=== PATIENT | female | born 2000 | race Caucasian/White ===

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

== ENCOUNTER 2020-01-30 19:21 | Outpatient (CLI) | payer MEDICAID ==
[2020-01-30 19:53] VITALS: BP 103/55
[2020-01-30] MEDS ORDERED: LACTATED RINGERS 500 ML IV ONE (20:00)
[2020-01-30 21:28] LABS: Basophils % (Auto) 0.4 % (0.0-1.8); Eosinophils # (Auto) 0.1 K/mm3 (0.0-0.4); Eosinophils % (Auto) 1.4 % (0.0-4.3); Hematocrit 33.6 % (30.3-42.9); Hemoglobin 11.4 gm/dl (10.1-14.3); Lymphocytes # (Auto) 2.5 K/mm3 (1.2-5.4); Lymphocytes % (Auto) 36.1 % (13.4-35.0); Mean Corpuscular HGB Conc 34 % (30-34); Mean Corpuscular Volume 100 fl (79-97); Monocytes # (Auto) 0.7 K/mm3 (0.0-0.8); Monocytes % (Auto) 9.4 % (0.0-7.3); Platelet Count 261 K/mm3 (140-440); Red Blood Count 3.36 M/mm3 (3.65-5.03); Red Cell Distribution Width 13.4 % (13.2-15.2)
[2020-01-30 21:41] LABS: Bacteria,Urine 1+ /HPF (Negative); Bilirubin,Urine NEG (Negative); Blood,Urine NEG (Negative); Color,Urine Yellow (Yellow); Mucus,Urine FEW /HPF; Protein,Urine <15 mg/dL mg/dL (Negative); Urobilinogen,Urine < 2.0 mg/dL (<2.0)
--- NOTE | 2020-01-30 22:30 | Ultrasound Report ---
ULTRASOUND OBSTETRIC INDICATION / CLINICAL INFORMATION: VAGINAL BLEED, RULE OUT ABRUPTION, SANDRA. Clinical Gestational Age (GA): 32 weeks 1 day TECHNIQUE: Transabdominal. COMPARISON: Obstetric ultrasound from 12/13/2019 FINDINGS: There is a single intrauterine . Heart Rate: 130 beats per minute. Position: cephalic. Placenta: Anterior and left lateral and free of the os. Amniotic Fluid Volume: normal Amniotic Fluid Index (SANDRA) in cm (if calculated): 12.1. Maternal Adnexa: No significant abnormality. IMPRESSION: 1. Single, living intrauterine with heart rate 130 bpm. SANDRA 12.1 cm. 2. No significant sonographic abnormality. Signer Name: Errol Delacruz MD Signed: 01/30/2020 10:25 PM Workstation Name: [id number]
== END 2020-01-30 22:25 | disposition home or self-care (01) ==
LOC: TRG 19:21
PROVIDERS: ATTEND Obstetrics & Gynecology
DX: O26.853 Spotting complicating pregnancy, third trimester (principal); O26.893 Other specified pregnancy related conditions, third trimester; R25.2 Cramp and spasm; Z3A.32 32 weeks gestation of pregnancy
CPT/HCPCS: 36415; 59025; 76815; 81001; 85025; 86850; 86900; 86901; 96360; J7120

== ENCOUNTER 2020-03-27 16:14 | Inpatient (IN) | payer MEDICAID ==
[2020-03-27 18:20] LABS: Hematocrit 32.7 % (30.3-42.9); Hemoglobin 10.8 gm/dl (10.1-14.3); Mean Corpuscular HGB Conc 33 % (30-34); Mean Corpuscular Volume 96 fl (79-97); Platelet Count 207 K/mm3 (140-440); Red Blood Count 3.41 M/mm3 (3.65-5.03); Red Cell Distribution Width 14.1 % (13.2-15.2)
[2020-03-27] MEDS ORDERED: AMPICILLIN/NS 2 GM/100 ML 2 GM/100 ML BAG IV ONE ×2 (18:41→19:27)
[2020-03-27] MEDS ORDERED: LACTATED RINGERS 1,000 ML ONE (18:41)
[2020-03-27] MEDS ORDERED: ePHEDrine SULFATE 50 MG/1 ML INJ IV PRN ×2 (18:53→19:19)
[2020-03-27] MEDS ORDERED: TERBUTALINE 1 MG/1 ML INJ SUB-Q PRN ×2 (18:53→19:19)
[2020-03-27] MEDS ORDERED: ONDANSETRON 4 MG/2 ML INJ IV PRN (18:53)
[2020-03-27] MEDS ORDERED: TERBUTALINE 1 MG/1 ML INJ IVP PRN ×2 (18:53→19:19)
[2020-03-27] MEDS ORDERED: NalbUPHINE 10 MG/1 ML INJ IV PRN (18:53)
[2020-03-27] MEDS ORDERED: BUTORPHANOL 2 MG/1 ML INJ IV PRN (18:53)
[2020-03-27] MEDS ORDERED: MINERAL OIL 30 ML ORAL LIQD PO PRN ×2 (18:53→19:19)
[2020-03-27] MEDS ORDERED: LIDOCAINE (2%) 20 MG/1 ML VIAL 20 ML MDV INFILTRATI ONE (18:53)
[2020-03-27] MEDS ORDERED: fentaNYL 100 MCG/2 ML INJ IV PRN (18:53)
[2020-03-27] MEDS ORDERED: LACTATED RINGERS 1,000 ML IV SCH (19:00)
[2020-03-27] MEDS ORDERED: OXYTOCIN DRIP 30 UNITS/500 ML BAG IV SCH ×3 (19:00→20:00)
[2020-03-27] MEDS ORDERED: AMPICILLIN 2 GM in SODIUM CHLORIDE 0.9% 50 ML IV ONE (19:17)
[2020-03-27] MEDS ORDERED: OXYTOCIN 20 UNIT/1000ML DRIP 20 UNITS/1,000 ML BAG IV SCH (20:00)
[2020-03-27] MEDS: BUTORPHANOL 2 MG/1 ML INJ IV PRN (22:09)
[2020-03-27] MEDS: AMPICILLIN/NS 1 GM/50 ML 1 GM/50 ML BAG IV SCH (22:27)
[2020-03-28] MEDS: BUTORPHANOL 2 MG/1 ML INJ IV PRN (00:46)
[2020-03-28] MEDS ORDERED: LACTATED RINGERS 1,000 ML IV ONE (00:48)
[2020-03-28] MEDS: AMPICILLIN/NS 1 GM/50 ML 1 GM/50 ML BAG IV SCH ×3 (02:53→11:31)
[2020-03-28] MEDS ORDERED: fentaNYL-BUPIV 2 MCG/ML-0.125% 200 MCG/100 ML BAG EPIDURAL ONE (03:22)
[2020-03-28] MEDS ORDERED: DEXMEDETOMIDINE 200 MCG/2 ML VIAL IV ONE (03:22)
[2020-03-28] MEDS ORDERED: ePHEDrine SULFATE 50 MG/1 ML INJ IV PRN (03:25)
[2020-03-28] MEDS ORDERED: NALOXONE 2 MG/2 ML INJ IV PRN (03:25)
--- NOTE | 2020-03-28 03:43 | Anesthesia Consultation ---
Anesthesia Consult and Med Hx Date of service: 03/28/20 - Airway Anesthetic Teeth Evaluation: Good ROM Head & Neck: Adequate Mental/Hyoid Distance: Adequate Mallampati Class: Class II Intubation Access Assessment: Probably Good - Pulmonary Exam CTA: Yes - Cardiac Exam Cardiac Exam: RRR - Pre-Operative Health Status ASA Pre-Surgery Classification: ASA2 Proposed Anesthetic Plan: Epidural - Pulmonary Hx Asthma: No - Cardiovascular System Hx Hypertension: No - Central Nervous System Hx Seizures: No Hx Psychiatric Problems: No - Endocrine Hx Renal Disease: No Hx Hypothyroidism: No Hx Hyperthyroidism: No - Hematic Hx Anemia: No Hx Sickle Cell Disease: No - Other Systems Hx Alcohol Use: No
--- NOTE | 2020-03-28 03:44 | Progress Note ---
Labor Epidural - Labor Epidural Start Time: 03:36 Stop Time: 03:45 Performed by:: ERNESTINE CANSECO Procedure: Patient is requesting epidural for labor pain. H&P, and labs reviewed. Procedure explained, questions answered, consent obtained. Patient in sitting position with blood pressure cuff and pulse ox on and working. Timeout performed immediately before start of procedure. Sterile betadine prep/drape. 3 mL 1% lidocaine skin wheal at L[3]-L[4]. 18-gauge Touhy epidural needle advanced to [id number] with saline at [7] cm. Epidural dexmedetomidine [30] mcg administered. Epidural catheter advanced to [12] cm, negative aspiration for blood and csf, negative test dose 3 ml 1.5% lidocaine with epinephrine. Sterile steri-strips and tegaderm applied, followed by tape reinforcement. Patient tolerated procedure well.
[2020-03-28] MEDS ORDERED: fentaNYL-BUPIV 2 MCG/ML-0.125% 200 MCG/100 ML BAG EPIDURAL SCH (04:00)
--- NOTE | 2020-03-28 07:37 | History and Physical Report ---
History of Present Illness Date of examination: 03/28/20 Date of admission: 03/27/20 Chief complaint: Rupture of membranes History of present illness: Pt is a 19 yo at 40w3d EGA who presents reporting leaking fluid since 1600 on 03/27. She is comfortable with an epidural and has been receiving Pitocin overnight. She has received care with [facility]. Her has been complicated by bilateral pyelectasis, marginal cord insertion, painful cyst in her back, and first trimester bleeding. She is GBS positive. Past History Past Medical History: no pertinent history Past Surgical History: other (cyst removed) Family/Genetic History: none Social history: no significant social history - Obstetrical History Expected Date of Delivery: 03/25/20 Actual Gestation: 40 Week(s) 3 Day(s) : 1 Para: 0 Medications and Allergies Allergies Allergy/AdvReac Type Severity Reaction Status Date / Time shrimp Allergy Anaphylaxis Verified 12/13/19 01:19 Home Medications Medication Instructions Recorded Confirmed Last Taken Type No Known Home Medications [No 03/28/20 03/28/20 Unknown History Reported Home Medications] Active Meds: Active Medications Butorphanol Tartrate (Stadol) 1 mg IV Q2H PRN PRN Reason: Pain, Moderate(4-6) LABOR PAIN Butorphanol Tartrate (Stadol) 2 mg IV Q2H PRN PRN Reason: Pain , Severe (7-10) Last Admin: 03/28/20 00:46 Dose: 2 mg Documented by: Ephedrine Sulfate (Ephedrine Sulfate) 10 mg IV Q2M PRN PRN Reason: Hypotension Fentanyl (Sublimaze) 100 mcg IV Q2H PRN PRN Reason: Pain,Severe (7-10) LABOR PAIN Oxytocin/Sodium Chloride (Pitocin/Ns 20 Unit/1000ml Drip) 20 units in 1,000 mls @ 125 mls/hr IV DIRECT SUE Lactated Ringer's (Lactated Ringers) 1,000 mls @ 125 mls/hr IV DIRECT SUE Last Admin: 03/27/20 19:00 Dose: 125 mls/hr Documented by: Oxytocin/Sodium Chloride (Pitocin/Ns 30 Unit/500ml) 30 units in 500 mls @ 4 mls/hr IV TITR SUE; Protocol Last Titration: 03/28/20 07:32 Dose: 4 ml/hr, 4 mls/hr Documented by: Ampicillin Sodium (Ampicillin/Ns 1 Gm/50 Ml) 1 gm in 50 mls @ 100 mls/hr IV Q4HR [facility]; Protocol Last Admin: 03/28/20 02:53 Dose: 100 mls/hr Documented by: Fentanyl/Bupivacaine/Sodium Chlor (Fentanyl-Bupiv 2 Mcg/Ml-0.125%) 200 mcg in 100 mls @ 12 mls/hr EPIDURAL TITR [facility]; Protocol Mineral Oil (Mineral Oil) 30 ml PO QHS PRN PRN Reason: Constipation Nalbuphine HCl (Nalbuphine) 10 mg IV Q2H PRN PRN Reason: Pain, Moderate (4-6) Naloxone HCl (Naloxone) 0.2 mg IV Q5M PRN PRN Reason: Respiratory sedation Ondansetron HCl (Zofran) 4 mg IV Q8H PRN PRN Reason: Nausea And Vomiting Terbutaline Sulfate (Brethine) 0.25 mg SUB-Q ONCE PRN PRN Reason: Hyperstimulation/Hypertonicity Terbutaline Sulfate (Brethine) 0.25 mg IVP ONCE PRN PRN Reason: Hyperstimulation/Hypertonicity Terbutaline Sulfate (Brethine) 0.25 mg IVP ONCE PRN PRN Reason: Hyperstimulation/Hypertonicity Review of Systems All systems: negative Genitourinary: leakage of fluid - Vital Signs Vital signs: Vital Signs Pulse BP 84 116/60 03/27/20 15:34 03/27/20 15:34 Temp Pulse Resp BP Pulse Ox 98.7 F 66 23 119/67 100 03/28/20 07:06 03/28/20 07:31 03/28/20 07:09 03/28/20 07:09 03/28/20 07:31 - Physical Exam Lungs: Positive: Normal air movement Abdomen: Positive: soft Genitourinary (Female): Positive: normal external genitalia Vagina: Positive: normal moisture Uterus: Positive: enlarged (gravid) Extremities: Positive: normal - Obstetrical FHR: category 1 Uterine Contraction Monitor Mode: External Cervical Dilatation: 6 Cervical Effacement Percentage: 90 station: -1 Uterine Contraction Pattern: Irregular Results Result Diagrams: 03/27/20 17:30 Abnormal lab results 03/27/20 Range/Units 17:30 RBC 3.41 L (3.65-5.03) M/mm3 All other labs normal. Assessment and Plan A: 19 yo at 40w3d EGA Membranes ruptured x15 hours GBS positive Bilateral pyelectasis Marginal cord insertion P: Continue augmentation of labor Ampicillin prophylaxis Notify peds upon delivery Expectant management of third stage of labor Anticipate
--- NOTE | 2020-03-28 12:28 | Progress Note ---
Assessment and Plan A: 19 yo at 40w3d EGA Membranes ruptured x20 hours Adequate cervical change GBS positive Bilateral pyelectasis Marginal cord insertion P: Continue augmentation of labor with Pitocin Ampicillin prophylaxis, add Gentimicin Positional changes to facilitate rotation and descent Notify peds upon delivery Expectant management of third stage of labor Anticipate Subjective - Subjective Date of service: 03/28/20 Principal diagnosis: SROM Interval history: Pt's membranes have been ruptured x20 hours. Most recent temp is 100.2 degrees F. No or maternal tachycardia noted. She is comfortable with regular uterine contractions. Patient reports: no new complaints Objective - Vital Signs Vital Signs: Vital Signs - 12hr 03/28/20 03/28/20 03/28/20 00:29 01:00 01:30 Temperature Pulse Rate 72 72 68 Respiratory Rate Blood Pressure 109/57 115/56 97/55 Blood Pressure [Right] O2 Sat by Pulse Oximetry 03/28/20 03/28/20 03/28/20 01:59 02:29 02:30 Temperature 98.3 F Pulse Rate 94 H 77 Respiratory 20 Rate Blood Pressure 131/63 116/57 Blood Pressure [Right] O2 Sat by Pulse Oximetry 03/28/20 03/28/20 03/28/20 02:59 03:31 03:32 Temperature Pulse Rate 82 113 H 104 H Respiratory Rate Blood Pressure 118/64 129/72 Blood Pressure [Right] O2 Sat by Pulse 99 Oximetry 03/28/20 03/28/20 03/28/20 03:34 03:36 03:38 Temperature Pulse Rate 100 H 98 H 79 Respiratory Rate Blood Pressure 116/66 115/58 113/58 Blood Pressure [Right] O2 Sat by Pulse 100 Oximetry 03/28/20 03/28/20 03/28/20 03:40 03:41 03:42 Temperature Pulse Rate 82 86 78 Respiratory Rate Blood Pressure 112/57 110/58 Blood Pressure [Right] O2 Sat by Pulse 99 Oximetry 03/28/20 03/28/20 03/28/20 03:44 03:46 03:48 Temperature Pulse Rate 75 76 75 Respiratory Rate Blood Pressure 110/55 110/59 104/59 Blood Pressure [Right] O2 Sat by Pulse 99 Oximetry 03/28/20 03/28/20 03/28/20 03:51 03:56 04:01 Temperature Pulse Rate 69 73 79 Respiratory Rate Blood Pressure Blood Pressure [Right] O2 Sat by Pulse 99 100 99 Oximetry 03/28/20 03/28/20 03/28/20 04:06 04:11 04:16 Temperature Pulse Rate 70 72 72 Respiratory Rate Blood Pressure Blood Pressure [Right] O2 Sat by Pulse 100 100 100 Oximetry 03/28/20 03/28/20 03/28/20 04:21 04:26 04:31 Temperature Pulse Rate 71 69 69 Respiratory Rate Blood Pressure Blood Pressure [Right] O2 Sat by Pulse 99 99 99 Oximetry 03/28/20 03/28/20 03/28/20 04:36 04:41 04:46 Temperature Pulse Rate 69 70 68 Respiratory Rate Blood Pressure Blood Pressure [Right] O2 Sat by Pulse 99 99 99 Oximetry 03/28/20 03/28/20 03/28/20 04:48 04:51 04:56 Temperature Pulse Rate 67 69 65 Respiratory Rate Blood Pressure 115/66 Blood Pressure [Right] O2 Sat by Pulse 99 99 Oximetry 03/28/20 03/28/20 03/28/20 05:01 05:06 05:11 Temperature Pulse Rate 71 64 66 Respiratory Rate Blood Pressure Blood Pressure [Right] O2 Sat by Pulse 98 99 99 Oximetry 03/28/20 03/28/20 03/28/20 05:16 05:21 05:26 Temperature Pulse Rate 67 62 60 Respiratory Rate Blood Pressure Blood Pressure [Right] O2 Sat by Pulse 99 99 99 Oximetry 03/28/20 03/28/20 03/28/20 05:31 05:36 05:41 Temperature Pulse Rate 56 L 65 60 Respiratory Rate Blood Pressure Blood Pressure [Right] O2 Sat by Pulse 99 98 99 Oximetry 03/28/20 03/28/20 03/28/20 05:46 05:48 05:51 Temperature Pulse Rate 64 66 66 Respiratory Rate Blood Pressure 112/63 Blood Pressure [Right] O2 Sat by Pulse 98 99 Oximetry 03/28/20 03/28/20 03/28/20 05:56 06:01 06:06 Temperature Pulse Rate 67 69 71 Respiratory Rate Blood Pressure Blood Pressure [Right] O2 Sat by Pulse 99 99 99 Oximetry 03/28/20 03/28/20 03/28/20 06:11 06:16 06:21 Temperature Pulse Rate 69 67 71 Respiratory Rate Blood Pressure Blood Pressure [Right] O2 Sat by Pulse 99 99 99 Oximetry 03/28/20 03/28/20 03/28/20 06:26 06:31 06:36 Temperature Pulse Rate 87 66 60 Respiratory Rate Blood Pressure Blood Pressure [Right] O2 Sat by Pulse 99 98 99 Oximetry 03/28/20 03/28/20 03/28/20 06:41 06:46 06:49 Temperature Pulse Rate 62 70 65 Respiratory Rate Blood Pressure 119/68 Blood Pressure [Right] O2 Sat by Pulse 99 99 Oximetry 03/28/20 03/28/20 03/28/20 06:51 06:56 07:01 Temperature Pulse Rate 68 85 73 Respiratory Rate Blood Pressure Blood Pressure [Right] O2 Sat by Pulse 99 99 99 Oximetry 03/28/20 03/28/20 03/28/20 07:06 07:07 07:09 Temperature 98.7 F Pulse Rate 73 71 Respiratory 23 23 Rate Blood Pressure 119/67 119/67 Blood Pressure 119/67 [Right] O2 Sat by Pulse 99 Oximetry 03/28/20 03/28/20 03/28/20 07:11 07:16 07:21 Temperature Pulse Rate 67 71 84 Respiratory Rate Blood Pressure Blood Pressure [Right] O2 Sat by Pulse 99 99 99 Oximetry 03/28/20 03/28/20 03/28/20 07:26 07:31 07:36 Temperature Pulse Rate 76 66 71 Respiratory Rate Blood Pressure Blood Pressure [Right] O2 Sat by Pulse 99 100 99 Oximetry 03/28/20 03/28/20 03/28/20 07:41 07:46 07:49 Temperature Pulse Rate 70 70 93 H Respiratory Rate Blood Pressure 108/53 Blood Pressure [Right] O2 Sat by Pulse 99 100 Oximetry 03/28/20 03/28/20 03/28/20 07:51 07:56 08:01 Temperature Pulse Rate 83 77 65 Respiratory Rate Blood Pressure Blood Pressure [Right] O2 Sat by Pulse 99 100 100 Oximetry 03/28/20 03/28/20 03/28/20 08:06 08:11 08:16 Temperature Pulse Rate 64 65 63 Respiratory Rate Blood Pressure Blood Pressure [Right] O2 Sat by Pulse 100 100 99 Oximetry 03/28/20 03/28/20 03/28/20 08:21 08:26 08:31 Temperature Pulse Rate 58 L 71 69 Respiratory Rate Blood Pressure Blood Pressure [Right] O2 Sat by Pulse 99 99 99 Oximetry 03/28/20 03/28/20 03/28/20 08:36 08:41 08:46 Temperature Pulse Rate 80 69 70 Respiratory Rate Blood Pressure Blood Pressure [Right] O2 Sat by Pulse 99 100 100 Oximetry 03/28/20 03/28/20 03/28/20 08:49 08:51 08:56 Temperature Pulse Rate 75 76 76 Respiratory Rate Blood Pressure 108/59 Blood Pressure [Right] O2 Sat by Pulse 99 99 Oximetry 03/28/20 03/28/20 03/28/20 09:01 09:06 09:11 Temperature Pulse Rate 67 76 70 Respiratory Rate Blood Pressure Blood Pressure [Right] O2 Sat by Pulse 99 100 99 Oximetry 03/28/20 03/28/20 03/28/20 09:16 09:21 09:26 Temperature Pulse Rate 65 80 68 Respiratory Rate Blood Pressure Blood Pressure [Right] O2 Sat by Pulse 100 100 100 Oximetry 03/28/20 03/28/20 03/28/20 09:31 09:36 09:41 Temperature Pulse Rate 80 69 97 H Respiratory Rate Blood Pressure Blood Pressure [Right] O2 Sat by Pulse 100 100 100 Oximetry 03/28/20 03/28/20 03/28/20 09:46 09:48 09:51 Temperature Pulse Rate 65 67 71 Respiratory Rate Blood Pressure 107/62 Blood Pressure [Right] O2 Sat by Pulse 100 100 Oximetry 03/28/20 03/28/20 03/28/20 09:56 10:01 10:06 Temperature Pulse Rate 55 L 71 70 Respiratory Rate Blood Pressure Blood Pressure [Right] O2 Sat by Pulse 100 100 100 Oximetry 03/28/20 03/28/20 03/28/20 10:11 10:15 10:16 Temperature 98.8 F Pulse Rate 60 69 Respiratory Rate Blood Pressure Blood Pressure [Right] O2 Sat by Pulse 100 100 Oximetry 03/28/20 03/28/20 03/28/20 10:21 10:26 10:31 Temperature Pulse Rate 95 H 67 70 Respiratory Rate Blood Pressure Blood Pressure [Right] O2 Sat by Pulse 100 100 99 Oximetry 03/28/20 03/28/20 03/28/20 10:36 10:41 10:46 Temperature Pulse Rate 70 67 73 Respiratory Rate Blood Pressure Blood Pressure [Right] O2 Sat by Pulse 100 100 99 Oximetry 05/03/28/20 03/28/20 10:48 10:51 10:56 Temperature Pulse Rate 72 66 67 Respiratory Rate Blood Pressure 119/70 Blood Pressure [Right] O2 Sat by Pulse 100 100 Oximetry 03/28/20 03/28/20 03/28/20 11:01 11:06 11:11 Temperature Pulse Rate 64 67 68 Respiratory Rate Blood Pressure Blood Pressure [Right] O2 Sat by Pulse 99 100 100 Oximetry 03/28/20 03/28/20 03/28/20 11:16 11:21 11:26 Temperature Pulse Rate 60 67 70 Respiratory Rate Blood Pressure Blood Pressure [Right] O2 Sat by Pulse 100 100 100 Oximetry 03/28/20 03/28/20 03/28/20 11:28 11:31 11:36 Temperature 100.2 F H Pulse Rate 70 103 H Respiratory Rate Blood Pressure Blood Pressure [Right] O2 Sat by Pulse 98 99 Oximetry 03/28/20 03/28/20 03/28/20 11:41 11:46 11:51 Temperature Pulse Rate 88 85 88 Respiratory Rate Blood Pressure Blood Pressure [Right] O2 Sat by Pulse 100 100 99 Oximetry 03/28/20 03/28/20 03/28/20 11:56 12:01 12:06 Temperature Pulse Rate 75 72 83 Respiratory Rate Blood Pressure Blood Pressure [Right] O2 Sat by Pulse 100 100 99 Oximetry 03/28/20 03/28/20 12:11 12:16 Temperature Pulse Rate 96 H 77 Respiratory Rate Blood Pressure Blood Pressure [Right] O2 Sat by Pulse 99 100 Oximetry - Exam Lungs: Normal air movement Abdomen: Present: soft FHR: category 1 Uterine Contraction Monitor Mode: External Cervical Dilatation: 9.5 Cervical Effacement Percentage: 100 station: -1 Uterine Contraction Frequency (min): 2 Uterine Contraction Duration: 60 Uterine Contraction Pattern: Regular Uterine Tone Measurement Phase: Contraction Uterine Contraction Intensity: Strong/Firm - Labs Labs: Abnormal Labs 03/27/20 17:30 RBC 3.41 L Laboratory Results - last 24 hr 03/27/20 03/27/20 03/27/20 17:30 17:30 17:30 WBC 7.7 RBC 3.41 L Hgb 10.8 Hct 32.7 MCV 96 MCH 32 MCHC 33 RDW 14.1 Plt Count 207 Syphilis IgG Antibody Non-reactive Blood Type O POSITIVE Antibody Screen Negative
[2020-03-28] MEDS ORDERED: GENTAMICIN 340 MG in SODIUM CHLORIDE 0.9% 100 ML IV SCH (12:30)
[2020-03-28] MEDS ORDERED: LIDOCAINE (2%) 20 MG/1 ML VIAL 20 ML MDV INFILTRATI ONE ×2 (15:28)
[2020-03-28] MEDS: OXYTOCIN 20 UNIT/1000ML DRIP 20 UNITS/1,000 ML BAG IV SCH ×2 (15:47→16:38)
[2020-03-28] MEDS ORDERED: PROMETHAZINE 25 MG TAB PO PRN (16:14)
[2020-03-28] MEDS ORDERED: MAGNESIUM HYDROXIDE (MOM) ORAL LIQD UDC PO PRN (16:14)
[2020-03-28] MEDS ORDERED: ACETAMINOPHEN 325 MG TAB PO PRN (16:14)
[2020-03-28] MEDS ORDERED: WITCH HAZEL/ GLYCERIN PAD TP PRN (16:14)
[2020-03-28] MEDS ORDERED: diphenhydrAMINE 25 MG CAP PO PRN (16:14)
[2020-03-28] MEDS ORDERED: ONDANSETRON 4 MG/2 ML INJ IV PRN (16:14)
[2020-03-28] MEDS ORDERED: PROMETHAZINE 25 MG RECT SUPP PR PRN (16:14)
[2020-03-28] MEDS ORDERED: LANOLIN/ZINC/DIMETHICONE (LANSINOH) 7 GM TP PRN (16:14)
--- NOTE | 2020-03-28 16:20 | Procedure Note ---
OB Delivery Note - Delivery Date of Delivery: 03/28/20 Surgeon: KAVON SANTILLAN ([facility]) Estimated blood loss: other (400cc) - Vaginal Delivery presentation: vertex Delivery position: OA Intrapartum events: PROM->1hr before delivery Delivery induction: none Delivery augmentation: pitocin Delivery monitor: external FHT, external uterine Route of delivery: Delivery placenta: spontaneous Delivery cord: 3 umbilical vessels Episiotomy: none Delivery laceration: 1st degree, other (right labial, double sulcus) Delivery repair: vicryl Anesthesia: epidural Delivery comments: Pt noted to be c/c/+1 and pushed to deliver live over intact perineum at 1537. Head delivered OA, restituted ROT, shoulders followed with gentle traction. Vigorous to maternal abdomen. Sulcus lacerations repaired with 2-0 Vicryl in locked fashion to hemostatis. Placenta delivered spontaneously and intact at 1547, marginal cord insertion, followed by membrane remnant. Cord clamped and cut. Fundus firm to massage, Pitocin infusing. EBL 400cc. Right labial/periclitoral laceration repaired with 3-0 Vicryl, 1st degree perineal laceration repaired with 2-0 Vicryl. Apgars 7/8. Weight 7lb 7oz. - A at 1 minute: 7 at 5 minutes: 8 Infant Gender: Male
[2020-03-28] MEDS: IBUPROFEN 600 MG TAB PO SCH ×2 (16:34→23:57)
[2020-03-29 04:14] LABS: Hemoglobin 8.6 gm/dl (10.1-14.3)
[2020-03-29] MEDS: IBUPROFEN 600 MG TAB PO SCH ×3 (06:27→17:10)
--- NOTE | 2020-03-29 08:42 | Progress Note ---
Assessment and Plan - Patient Problems (1) Vaginal delivery Current Visit: Yes Status: Acute Plan to address problem: Patient doing well Discharge home Subjective - Subjective Date of service: 03/29/20 Principal diagnosis: SROM Interval history: The patient was without complaints today. She reports that her lochia is minimal. Her pain is well controlled. Patient reports: appetite normal, voiding normally, pain well controlled : doing well Objective - Vital Signs Latest vital signs: Vital Signs Temp Pulse Resp BP BP Pulse Ox 03/29/20 06:27 18 03/29/20 02:55 97.6 F 80 18 101/58 98 03/28/20 23:57 20 03/28/20 22:37 97.7 F 84 18 104/52 97 03/28/20 18:05 99.4 F 72 20 111/62 03/28/20 17:40 98.8 F 03/28/20 17:38 71 88 03/28/20 17:37 87 99 03/28/20 17:32 95 H 100 03/28/20 17:31 65 94 03/28/20 17:27 83 100 03/28/20 17:26 92 H 107/63 03/28/20 17:22 88 99 03/28/20 17:17 89 102/61 98 03/28/20 17:11 82 110/61 03/28/20 16:56 78 108/57 03/28/20 16:41 87 105/58 03/28/20 16:26 80 98/55 03/28/20 16:11 92 H 121/81 03/28/20 15:48 95 H 110/57 03/28/20 15:11 102 H 98 03/28/20 15:06 104 H 99 03/28/20 15:01 90 98 03/28/20 14:56 102 H 99 03/28/20 14:51 87 99 03/28/20 14:48 99.9 F H 91 H 138/60 03/28/20 14:46 110 H 99 03/28/20 14:41 114 H 98 03/28/20 14:36 104 H 99 03/28/20 14:31 93 H 99 03/28/20 14:26 103 H 100 03/28/20 14:21 96 H 100 03/28/20 14:16 104 H 99 03/28/20 14:11 91 H 100 05/28/20 14:06 102 H 100 05 14:01 110 H 100 05 13:56 103 H 99 03/28/20 13:51 90 99 05 13:46 98 H 100 03/28/20 13:41 105 H 99 03/28/20 13:36 109 H 98 03/28/20 13:31 74 99 05 13:26 77 99 05 13:21 92 H 100 03/28/20 13:16 87 99 05 13:11 83 100 03/28/20 13:06 86 99 05 13:01 105 H 100 03/28/20 12:56 104 H 99 03/28/20 12:51 83 99 05 12:46 80 100 03/28/20 12:41 99.8 F H 88 100 03/28/20 12:36 89 99 03/28/20 12:31 83 98 03/28/20 12:26 91 H 100 03/28/20 12:21 92 H 99 03/28/20 12:16 77 100 03/28/20 12:11 96 H 99 03/28/20 12:06 83 99 03/28/20 12:01 72 100 05 11:56 75 100 03/28/20 11:51 88 99 03/28/20 11:46 85 100 03/28/20 11:41 88 100 03/28/20 11:36 103 H 99 03/28/20 11:31 70 98 03/28/20 11:28 100.2 F H 03/28/20 11:26 70 100 05 11:21 67 100 05 11:16 60 100 05 11:11 68 100 05 11:06 67 100 05 11:01 64 99 05 10:56 67 100 05 10:51 66 100 05 10:48 72 119/70 05 10:46 73 99 05 10:41 67 100 05 10:36 70 100 05 10:31 70 99 05 10:26 67 100 05 10:21 95 H 100 03/28/20 10:16 69 100 03/28/20 10:15 98.8 F 03/28/20 10:11 60 100 03/28/20 10:06 70 100 03/28/20 10:01 71 100 03/28/20 09:56 55 L 100 03/28/20 09:51 71 100 03/28/20 09:48 67 107/62 03/28/20 09:46 65 100 03/28/20 09:41 97 H 100 03/28/20 09:36 69 100 03/28/20 09:31 80 100 03/28/20 09:26 68 100 03/28/20 09:21 80 100 03/28/20 09:16 65 100 03/28/20 09:11 70 99 03/28/20 09:06 76 100 03/28/20 09:01 67 99 03/28/20 08:56 76 99 03/28/20 08:51 76 99 03/28/20 08:49 75 108/59 03/28/20 08:46 70 100 Intake and Output 03/28/20 03/29/20 03/29/20 22:59 06:59 14:59 Intake Total 466.25 360 Output Total 600 Balance -133.75 360 Intake: IV 106.25 PITOCin/NS 20 UNIT/1000ML 106.25 DRIP 20 units In 1,000 ml @ 125 mls/hr IV DIRECT SUE Rx#:[id number] Intake, Free Water 360 360 Output: Urine 600 Indwelling Catheter 200 Void 400 Other: Total, Output Amount 400 # Voids Void 2 Estimated Blood Loss 400 - Exam Abdomen: Present: normal appearance Uterus: Present: normal, firm - Labs Labs: Abnormal lab results 03/29/20 Range/Units 03:57 Hgb 8.6 L (10.1-14.3) gm/dl Hct 26.0 L D (30.3-42.9) %
--- NOTE | 2020-03-29 08:43 | Discharge Summary ---
Providers - Providers Date of Admission: 03/28/20 08:40 Date of discharge: 03/29/20 Attending physician: LILO ALEJANDRA 03/28/20 16:14 Consult to [employer] [facility] [CONS] Routine Reason For Exam: assistance with , SNS Primary care physician: LILO ALEJANDRA Hospitalization Reason for admission: rupture of membranes Delivery: Discharge diagnosis: IUP at term delivered Hospital course: The patient presented to labor and delivery with a complaint of spontaneous rupture membranes. She went underwent augmentation and had a successful vaginal delivery. Her course was uneventful. Condition at discharge: Good Disposition: DC-01 TO HOME OR SELFCARE - Discharge Diagnoses (1) Vaginal delivery Status: Acute Plan - Discharge Medications Prescriptions: Ferrous Sulfate [Feosol 325 MG tab] 325 mg PO BID #60 tablet Ibuprofen [Motrin] 600 mg PO Q6H PRN #60 tablet PRN Reason: Pain HYDROcodone/APAP 5-325 [[place] 5/325] 1 each PO Q6HR PRN #20 tablet PRN Reason: Pain - Provider Discharge Summary Activity: no sex for 6 weeks, no heavy lifting 4 weeks, no strenuous exercise Diet: routine Instructions: routine Additional instructions: [] Smoking cessation referral if applicable(refer to patient education folder for contact #) [] Refer to [facility] Booklet Call your doctor immediately for: * Fever > 100.5 * Heavy vaginal bleeding ( >1 pad per hour) * Severe persistent headache * Shortness of breath * Reddened, hot, painful area to leg or breast * Schedule visit in 4 weeks - Follow up plan
--- NOTE | 2020-03-29 19:43 | Post Anesthesia Evaluation ---
- Post Anesthesia Evaluation Patient Participated: Yes Airway Patent: Yes Stable Respiratory Function: Yes Nausea/Vomiting: No Temp > 96.8F: Yes Pain Manageable: Yes Adequeate Hydration: Yes Anesthesia Complications: No Block Receding Appropriately: Yes (Pt c/o R leg numbness no weakness. Assured patient that likely will continue to improve and followup if it does not resolve on it's own.)
[2020-03-30] MEDS: IBUPROFEN 600 MG TAB PO SCH ×2 (00:29→06:47)
[2020-03-30 08:46] VITALS: BP 113/66
== END 2020-03-30 20:40 | disposition home or self-care (01) | DRG 775 ==
LOC: LD 16:14 → TRG 16:14 → LD 03-28 08:40 → OB 03-28 18:04
PROVIDERS: ADMIT Obstetrics & Gynecology; ATTEND Obstetrics & Gynecology
PROC: 10E0XZZ Delivery of Products of Conception, External Approach (ICD-10-PCS; principal; 2020-03-28)
PROC: 0HQ9XZZ Repair Perineum Skin, External Approach (ICD-10-PCS; 2020-03-28)
PROC: 3E0R3BZ Introduction of Anesthetic Agent into Spinal Canal, Percutaneous Approach (ICD-10-PCS; 2020-03-28)
PROC: 00HU33Z Insertion of Infusion Device into Spinal Canal, Percutaneous Approach (ICD-10-PCS; 2020-03-28)
DX: O42.92 Full-term premature rupture of membranes, unspecified as to length of time between rupture and onset of labor (principal); O99.824 Streptococcus B carrier state complicating childbirth; O35.8XX0 Maternal care for other (suspected) fetal abnormality and damage, not applicable or unspecified; O69.89X0 Labor and delivery complicated by other cord complications, not applicable or unspecified; O70.0 First degree perineal laceration during delivery; Z37.0 Single live birth; Z3A.40 40 weeks gestation of pregnancy; Z91.013 Allergy to seafood
CPT/HCPCS: 36415; 59025; 85014; 85018; 85027; 86592; 86850; 86900; 86901; 88307; G0378; J0290; J0595; J1580; J2405; J2590; J3490; J7120